=== PATIENT | female | born 1945 | race Caucasian/White ===

== ENCOUNTER 2016-05-26 15:00 | Inpatient (IN) | payer MEDICARE, MEDICAID ==
[~2016-05-26] VITALS: Ht 165.1 cm; Wt 54.4 kg
[2016-05-26] MEDS ORDERED: DIVA500T7 PO (15:39)
[2016-05-26] MEDS ORDERED: CHOL10005 PO (15:39)
[2016-05-26] MEDS ORDERED: PANT40TA4 PO (15:39)
[2016-05-26] MEDS ORDERED: DONE5TAB34 PO (15:39)
[2016-05-26] MEDS ORDERED: DIVA125T2 PO (15:39)
--- NOTE | 2016-05-26 15:57 | NUR ---
PT IS IN ROOM #1A. DR PEACE EVALUATED THE PT. CODE SEPSIS WAS CALLED BY DR PEACE.
[2016-05-26 16:00] LABS: CALCIUM 8.6 mg/dL (8.5-10.1); CREATININE 1.2 mg/dL (0.6-1.3); POTASSIUM 4.4 mmol/L (3.5-5.1)
[2016-05-26 16:01] LABS: BASOPHILS % (AUTO) 0.2 % (0.0-2.0); EOSINOPHILS # (AUTO) 0.1 K/uL (0.0-0.7); EOSINOPHILS % (AUTO) 0.5 % (0.0-7.0); HEMATOCRIT 33.4 % (37.0-47.0); HEMOGLOBIN 11.1 g/dL (12.0-16.0); LYMPHOCYTES # (AUTO) 0.4 K/uL (0.8-4.8); LYMPHOCYTES % (AUTO) 3.1 % (20.5-51.5); MEAN CORPUSCULAR HEMOGLOBIN 27.9 uug (27.0-31.0); MEAN CORPUSCULAR HGB CONC 33 g/dL (32.0-37.0); MEAN CORPUSCULAR VOLUME 84.3 fL (81.0-99.0); MONOCYTES # (AUTO) 0.7 K/uL (0.1-1.30); MONOCYTES % (AUTO) 5.6 % (0.0-11.0); NEUTROPHILS # (AUTO) 10.9 K/uL (1.8-8.9); NEUTROPHILS % (AUTO) 90.6 % (38.5-71.5); PLATELET COUNT (AUTO) 241 K/uL (150-450); RED BLOOD CELL COUNT(AUTO) 3.96 MIL/uL (4.20-5.40); RED CELL DISTRIBUTION WIDTH 13.4 % (11.5-14.5); WHITE BLOOD COUNT (AUTO) 12.1 K/uL (4.0-11.2)
[2016-05-26 16:05] LABS: TROPONIN I < 0.017 ng/mL (0.00-0.056)
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
[2016-05-26 16:11] LABS: ALBUMIN 2.8 g/dL (3.4-5.0); BILIRUBIN,DIRECT 0.1 mg/dL (0.0-0.2); BILIRUBIN,TOTAL 0.2 mg/dL (0.2-1.0); TOTAL PROTEIN, SERUM 6.9 g/dL (6.4-8.2)
[2016-05-26 16:22] LABS: LACTIC ACID 4.1 mmol/L (0.4-2.0)
[2016-05-26 16:23] LABS: THYROID STIMULATING HORMONE 1.474 mIU/mL (0.358-3.740)
[2016-05-26] MEDS ORDERED: LEVOFLOXACIN 750 MG/D5W 150 ML PIGGYBACK IV ONE (16:30)
[2016-05-26] MEDS ORDERED: IV NORMAL SALINE 1000 ML BAG IV ONE (16:30)
[2016-05-26] MEDS ORDERED: PIPERACILLIN SODIUM/TAZOBACTAM 3.375 G in IV DEXTROSE 5% 50 ML IV ONE (16:30)
[2016-05-26] MEDS ORDERED: LEVOFLOXACIN 750MG/D5W 150 ML IV ONE (17:23)
[2016-05-26] MEDS ORDERED: PIPERACILLIN/TAZOBACTAM/D5W 50 ML IV ONE (17:23)
[2016-05-26 18:05] LABS: *BILIRUBIN,URIN NEGATIVE (NEGATIVE); *BLOOD, URINE 2+ (NEGATIVE); *CLARITY,URINE CLOUDY (CLEAR); *COLOR,URINE YELLOW (YELLOW); *KETONES,URINE NEGATIVE (NEGATIVE); *UROBILINOGEN,URINE 0.2 E.U./dl (NORMAL); LEUKOCYTE ESTERASE ,URINE 2+ (NEGATIVE); NITRITE, URINE NEGATIVE (NEGATIVE); PH,URINE 7.5 (5.0-8.0); UGLUCOSE NEGATIVE (NEGATIVE)
[2016-05-26 18:13] LABS: *PROTEIN,URINE 3+ (NEGATIVE)
[2016-05-26 18:21] LABS: BACTERIA,URINE FEW /HPF (NONE SEEN); SQUAMOUS EPITHELIAL CELL,UR FEW /HPF (NONE SEEN); WBC,URINE TNTC /HPF (0-3)
--- NOTE | 2016-05-26 18:29 | NUR ---
REPORT WAS GIVEN TO SILVER RECOVERY OPERATOR. PT WAS TRANSFERED TO TELEMETRY ROOM #219.
--- NOTE | 2016-05-26 18:40 | NUR ---
RECEIVED PATIENT FROM ED 70 YEARS OLD FEMALE BY BOONE TO ROOM 219 WITH DX OF SEPSIS.PLACED PATIENT INTO BED FIXED AND MADE COMFORTABLE.PATIENT IS UNCOOPERATIVE SCREAMING AND RESISTANT TO CARE.PATIENT IS CONFUSED AND DISORIENTED AND UNABLE TO VERBALLY RESPOND.ZOILA IN INCONTINENT OF URINE DIAPER CHANGED AND TELEMETRY APPLIED AND PATIENT IS SINUS TACHYCARDIA HIGH 115
--- NOTE | 2016-05-26 18:51 | NUR ---
AWAITING FOR PATIENT TO BE ROLLED OVER BY THE ED AND PAPER WORK TO BE BROUGHT FROM THE ED DEPT.
[2016-05-26 18:52] VITALS: BP 104/60
--- NOTE | 2016-05-26 18:53 | NUR ---
WILL ENDORSE ADMISSION OF THIS PATIENT TO THE NEXT SHIFT.
--- NOTE | 2016-05-26 19:30 | NUR ---
Received patient sleeping comfortably in bed, no s/s of distress. Call light within reach. Will continue to monitor.
[2016-05-26 20:00] VITALS: BP 104/62
[2016-05-26] MEDS ORDERED: ONDANSETRON 4 MG/2 ML VIAL IV PRN (20:15)
[2016-05-26] MEDS ORDERED: MAGNESIUM HYDROXIDE 30 ML LIQUID UDC PO PRN (20:15)
[2016-05-26] MEDS ORDERED: ACETAMINOPHEN 325 MG TABLET PO PRN (20:15)
[2016-05-26] MEDS ORDERED: DOCUSATE SODIUM 250 MG CAPSULE PO SCH (21:00)
[2016-05-26] MEDS: CEFTRIAXONE 1 G in IV DEXTROSE 5% 50 ML IV SCH (21:12)
[2016-05-26] MEDS: DOCUSATE SODIUM 100 MG CAPSULE PO SCH (21:12)
[2016-05-26] MEDS: IV NS 1000 ML 1,000 ML IV PRN ×2 (21:12→23:12)
[2016-05-26] MEDS: VALPROATE SODIUM IV 500 MG in IV DEXTROSE 5% 100 ML IV SCH (22:32)
[2016-05-27] VITALS: BP 126/77
[2016-05-27] MEDS ORDERED: Z GUARD REMEDY PASTE 57 GM TUBE TOP PRN ×2 (01:15→11:58)
[2016-05-27 04:00] VITALS: BP_SYST 114; BP_SYST 126; BP_DIAS 70; BP_DIAS 77
[2016-05-27] MEDS: PANTOPRAZOLE SODIUM 40 MG TABLET.DR PO SCH (06:10)
--- NOTE | 2016-05-27 06:49 | NUR ---
Patient sleeping in bed, with no s/s of distress. IVF infusing well. Admission procedure completed. Skin assessment photos taken and placed in chart. Due meds given. MRSA swab done and sent to lab. Kept clean and dry. Kept in a comfortable position. Frequent checks done to ensure safety. Will endorse accordingly.
[2016-05-27 08:19] LABS: BASOPHILS % (AUTO) 0.2 % (0.0-2.0); EOSINOPHILS # (AUTO) 0.2 K/uL (0.0-0.7); EOSINOPHILS % (AUTO) 3.3 % (0.0-7.0); MEAN CORPUSCULAR HEMOGLOBIN 27.4 uug (27.0-31.0); MEAN CORPUSCULAR HGB CONC 33 g/dL (32.0-37.0); MONOCYTES # (AUTO) 0.4 K/uL (0.1-1.30); MONOCYTES % (AUTO) 8.2 % (0.0-11.0); NEUTROPHILS # (AUTO) 3.8 K/uL (1.8-8.9); NEUTROPHILS % (AUTO) 70.3 % (38.5-71.5); PLATELET COUNT (AUTO) 189 K/uL (150-450); RED BLOOD CELL COUNT(AUTO) 3.28 MIL/uL (4.20-5.40); RED CELL DISTRIBUTION WIDTH 13.6 % (11.5-14.5)
[2016-05-27 08:22] LABS: WHITE BLOOD COUNT (AUTO) 5.4 K/uL (4.0-11.2)
[2016-05-27 08:23] LABS: HEMATOCRIT 27.5 % (37.0-47.0)
--- NOTE | 2016-05-27 08:30 | NUR ---
RECEIVED PATIENT ASLEEP EASILY AROUSABLE ON ROUNDS ASSISTED WITH BREAKFAST ALL NEEDS ANTICIPATED AND SATISFIED TOTALLY DEPENDENT ON NURSES FOR ALL ADL.REMAIN ON IVF ORDERED WITH NO S/S OF INFILTERATION NOT IN DISTRESS AT THIS TIME.
[2016-05-27 09:10] LABS: ALBUMIN 2.4 g/dL (3.4-5.0); BILIRUBIN,TOTAL 0.2 mg/dL (0.2-1.0); CREATININE 0.8 mg/dL (0.6-1.3); MAGNESIUM 2.1 mg/dL (1.8-2.4); PHOSPHOROUS 3.4 mg/dL (2.5-4.9); POTASSIUM 4.2 mmol/L (3.5-5.1)
[2016-05-27 09:12] LABS: THYROID STIMULATING HORMONE 1.203 mIU/mL (0.358-3.740)
--- NOTE | 2016-05-27 10:40 | NUR ---
CLINICAL PHARMACY NOTE: REVIEW OF [facility] [place] [facility] This is a 70 y/o female admitted yesterday evening due to altered mental status and weakness. Patient is currently confused, nonverbal, and was agitated yesterday evening, worked up for stroke in ED, as well as sepsis. Patient has history of dementia and is currently being worked up for possible urosepsis. High Risk Medications: Aricept: Potential for QTc prolongation, bradycardia, syncope. Despite risks, patient has no other QT prolonging agents on board at home or in house and HR is currently tachycardic. Valproic acid: although not high risk medication in itself, side effects are dose related and can include CONCRETE MIXER OPERATOR toxicity, contributing to cognitive impairment. Patient currently on 500mg qhs, about 9 mg/kg dosage for seizure, lower than usual 15mg/kg. Although the previously mentioned medications above could possibly affect patient status, patient is on lowest dose for Aricept and lower than usual dosage for valproic acid with indications for each. Patient's home med list is minimal and does not indicate any other significant DDI. Current in house medications also reviewed for potential high risk medications, and no further medication related concerns at this time.
[2016-05-27 11:49] VITALS: BP 100/62
[2016-05-27] MEDS: Z GUARD REMEDY PASTE 57 GM TUBE TOP SCH ×2 (12:05→21:28)
[2016-05-27] MEDS: IV NS 1000 ML 1,000 ML IV PRN (13:01)
--- NOTE | 2016-05-27 14:00 | NUR ---
PATIENT SEEN AND EXAMINED BY THE GRANITE CUTTER DR ESCALANTE WITH ORDER TO DISCONTINUE TELEMETRY AND NOTED.PATIENT AMBULATED IN THE HALLWAY WITH STAND BYE ASSIST AND SEATED BY THE ELEVATOR FOR ABOUT HALF AN HOUR AND TOLERATED WELL.ASSISTED BACK TO BED AND NO C/O NOTED. Addendum: 05/27/16 at 1446 by RAH AGUILAR RN ERROR IN CHARTING WRONG ENTRY WRONG PATIENT
--- NOTE | 2016-05-27 14:46 | NUR ---
RESTING IN BED PATIENT OFTEN TIMES TALKING INCOHERENT ALL NEEDS ANTICIPATED AND SATISFIED.SEEN BY THE LIFE CLAIMS EXAMINER DR SUNG WITH NEW ORDERS AND NOTED.
[2016-05-27 15:38] VITALS: BP 98/56
--- NOTE | 2016-05-27 17:40 | NUR ---
TURNED AND REPOSITIONED Q2H FOR COMFORT HEELS FLOATED TO PREVENT PRESSURE.MAX ASSIST FOR ALL ADL NOT IN DISTRESS AT THIS TIME.
--- NOTE | 2016-05-27 19:30 | NUR ---
Received patient asleep with no s/s of distress. IV line patent, fluids infusing well. Will continue to monitor.
[2016-05-27 20:00] VITALS: BP 137/89
[2016-05-27] MEDS: CEFTRIAXONE 1 G in IV DEXTROSE 5% 50 ML IV SCH (20:23)
[2016-05-27] MEDS: DOCUSATE SODIUM 100 MG CAPSULE PO SCH (21:01)
[2016-05-27] MEDS: VALPROATE SODIUM IV 500 MG in IV DEXTROSE 5% 100 ML IV SCH (21:01)
[2016-05-28] MEDS: IV NS 1000 ML 1,000 ML IV PRN ×2 (04:52→21:39)
[2016-05-28 05:00] VITALS: BP 135/78
[2016-05-28] MEDS: PANTOPRAZOLE SODIUM 40 MG TABLET.DR PO SCH (06:29)
--- NOTE | 2016-05-28 06:44 | NUR ---
Patient sleeping on bed with no s/s of distress. IV intact, fluids infusing well. Due meds given. Kept clean, dry and comfortable. Redness on groin area noted to have subsided. Call light within reach. Frequent checks done to ensure safety. Endorsed accordingly.
--- NOTE | 2016-05-28 08:00 | NUR ---
Received Sleeping in bed and arousable and non verbal at this time. Caregiver in room and states that she thinks pt is in pain but pt is very relaxed at this time.
[2016-05-28] MEDS: Z GUARD REMEDY PASTE 57 GM TUBE TOP SCH ×2 (09:58→21:41)
[2016-05-28 10:01] LABS: BASOPHILS % (AUTO) 0.7 % (0.0-2.0); EOSINOPHILS # (AUTO) 0.2 K/uL (0.0-0.7); EOSINOPHILS % (AUTO) 4.6 % (0.0-7.0); HEMATOCRIT 27.8 % (37.0-47.0); HEMOGLOBIN 8.9 g/dL (12.0-16.0); LYMPHOCYTES # (AUTO) 1.1 K/uL (0.8-4.8); LYMPHOCYTES % (AUTO) 24.2 % (20.5-51.5); MEAN CORPUSCULAR HEMOGLOBIN 27.4 uug (27.0-31.0); MEAN CORPUSCULAR HGB CONC 32 g/dL (32.0-37.0); MEAN CORPUSCULAR VOLUME 85.1 fL (81.0-99.0); MONOCYTES # (AUTO) 0.3 K/uL (0.1-1.30); MONOCYTES % (AUTO) 5.9 % (0.0-11.0); NEUTROPHILS # (AUTO) 3.1 K/uL (1.8-8.9); NEUTROPHILS % (AUTO) 64.6 % (38.5-71.5); PLATELET COUNT (AUTO) 173 K/uL (150-450); RED BLOOD CELL COUNT(AUTO) 3.26 MIL/uL (4.20-5.40); RED CELL DISTRIBUTION WIDTH 13.5 % (11.5-14.5); WHITE BLOOD COUNT (AUTO) 4.7 K/uL (4.0-11.2)
[2016-05-28 10:08] LABS: CALCIUM 8.2 mg/dL (8.5-10.1); CREATININE 0.8 mg/dL (0.6-1.3); POTASSIUM 3.9 mmol/L (3.5-5.1)
[2016-05-28 11:03] VITALS: BP 110/68
[2016-05-28 15:02] VITALS: BP 108/54
--- NOTE | 2016-05-28 18:26 | NUR ---
PT here and attempt to get pt up OOB with assist unable to do so as pt is very stiff and pushing back.
[2016-05-28 20:00] VITALS: BP 136/81
[2016-05-28] MEDS: CEFTRIAXONE 1 G in IV DEXTROSE 5% 50 ML IV SCH (21:40)
[2016-05-28] MEDS: VALPROATE SODIUM IV 500 MG in IV DEXTROSE 5% 100 ML IV SCH (21:40)
[2016-05-28] MEDS: DOCUSATE SODIUM 100 MG CAPSULE PO SCH (21:42)
[2016-05-29 04:00] VITALS: BP 128/65
--- NOTE | 2016-05-29 06:00 | NUR ---
PT GIVEN MEDS COLACE, PLACED IN APPLE SAUCE, NOTED PT COUGHING AND NOTED THAT PT KEEPS FOOD IN THE MOUTH. PT RESPONDS WHEN CALLED HER NAME AT TIMES BUT MOST OF THE TIME SHE DOESN'T COMMUNICATE. STARTED NEW IV, OLD IV SITE SWOLLEN AND RED AND PUMP KEEP ALARMING.CONTINUE WITH IV FLUIDS, VSS,AFEBRILE.
[2016-05-29 06:20] LABS: CALCIUM 8.3 mg/dL (8.5-10.1); CREATININE 0.7 mg/dL (0.6-1.3); MAGNESIUM 1.8 mg/dL (1.8-2.4); PHOSPHOROUS 3.7 mg/dL (2.5-4.9); POTASSIUM 3.6 mmol/L (3.5-5.1)
[2016-05-29 06:21] LABS: BASOPHILS # (AUTO) 0.2 K/uL (0.0-0.2); EOSINOPHILS # (AUTO) 0.4 K/uL (0.0-0.7); EOSINOPHILS % (AUTO) 6.4 % (0.0-7.0); HEMATOCRIT 28.7 % (37.0-47.0); HEMOGLOBIN 9.4 g/dL (12.0-16.0); LYMPHOCYTES # (AUTO) 1.6 K/uL (0.8-4.8); LYMPHOCYTES % (AUTO) 24.7 % (20.5-51.5); MEAN CORPUSCULAR HEMOGLOBIN 27.9 uug (27.0-31.0); MEAN CORPUSCULAR HGB CONC 33 g/dL (32.0-37.0); MEAN CORPUSCULAR VOLUME 84.8 fL (81.0-99.0); MONOCYTES # (AUTO) 0.4 K/uL (0.1-1.30); MONOCYTES % (AUTO) 5.3 % (0.0-11.0); NEUTROPHILS % (AUTO) 60.6 % (38.5-71.5); PLATELET COUNT (AUTO) 115 K/uL (150-450); RED BLOOD CELL COUNT(AUTO) 3.38 MIL/uL (4.20-5.40); RED CELL DISTRIBUTION WIDTH 12.9 % (11.5-14.5); WHITE BLOOD COUNT (AUTO) 6.6 K/uL (4.0-11.2)
[2016-05-29] MEDS: PANTOPRAZOLE SODIUM 40 MG TABLET.DR PO SCH (07:41)
[2016-05-29] MEDS: Z GUARD REMEDY PASTE 57 GM TUBE TOP SCH ×2 (08:03→20:33)
[2016-05-29 11:23] VITALS: BP 129/55
[2016-05-29] MEDS ORDERED: FUROSEMIDE 20 MG/2 ML VIAL IV ONE (12:30)
[2016-05-29] MEDS ORDERED: SOD FERRIC GLUC COMPLX/SUCROSE 125 MG in IV NORMAL SALINE 100 ML IV SCH (14:00)
[2016-05-29 16:02] VITALS: BP 127/72
[2016-05-29 20:00] VITALS: BP 121/81
[2016-05-29] MEDS: DOCUSATE SODIUM 100 MG CAPSULE PO SCH (20:32)
[2016-05-29] MEDS: CEFTRIAXONE 1 G in IV DEXTROSE 5% 50 ML IV SCH (20:33)
--- NOTE | 2016-05-29 21:30 | NUR ---
Pt's IV pump keeps alarming, IV site on left thumb discontinued, started IV HL to right forearm using gauge 22 needle x 1 attempt with good blood return.
[2016-05-29] MEDS: VALPROATE SODIUM IV 500 MG in IV DEXTROSE 5% 100 ML IV SCH (21:33)
[2016-05-30 04:00] VITALS: BP 116/66
[2016-05-30] MEDS: PANTOPRAZOLE SODIUM 40 MG TABLET.DR PO SCH (06:15)
[2016-05-30] MEDS: Z GUARD REMEDY PASTE 57 GM TUBE TOP SCH ×2 (08:03→20:36)
[2016-05-30 12:00] VITALS: BP 123/77
[2016-05-30 15:39] VITALS: BP 103/72
--- NOTE | 2016-05-30 17:17 | NUR ---
Spoke to the patient's DPOAHC, Radha Michel [ ], about discharge planning and she became very agitated and nervous because she felt that planning for her discharge is too premature. Explained to her that the patient is not being discharged today but we need to plan for it, the sooner the better. Asked which SNF she came from and she declined to give the facility in fear that the patient will be discharged back there without he knowledge. Reassured her that she will be contacted for any discharge before but she would like to speak to the MD first. Updated the chargemaster analyst, Brittany, and requested for Dr. Rojas to call her.
[2016-05-30 20:00] VITALS: BP 127/85
--- NOTE | 2016-05-30 20:00 | NUR ---
RECEIVED PATIENT ASLEEP IN BED. AROUSABLE BUT FALLS BACK ASLEEP QUICKLY. NO S/S OF ANY PAIN OR DISCOMFORT. NO FACIAL GRIMACE NOTED. NO RESP. DISTRESS NOTED. VSS. HOB ELEVATED FOR ASPIRATION PRECAUTIONS. HEPLOCK INTACT AND PATENT NOTED TO RIGHT FA #[address]GE[address]. BED ALARM ON. CALL LIGHT IN REACH. ALL NEEDS ATTENDED. WILL CONTINUE TO MONITOR.
[2016-05-30] MEDS: CEFTRIAXONE 1 G in IV DEXTROSE 5% 50 ML IV SCH (20:05)
--- NOTE | 2016-05-30 20:35 | NUR ---
PATIENT UNABLE TO TAKE HS COLACE AT THIS TIME. MOUTH CARE PROVIDED AND PATIENT REPOSITIONED TO COMFORT. BED ALARM ON. WILL CONTINUE TO MONITOR.
[2016-05-30] MEDS: DOCUSATE SODIUM 100 MG CAPSULE PO SCH (20:36)
[2016-05-30] MEDS: VALPROATE SODIUM IV 500 MG in IV DEXTROSE 5% 100 ML IV SCH (21:00)
[2016-05-31 04:00] VITALS: BP 130/80
[2016-05-31] MEDS: PANTOPRAZOLE SODIUM 40 MG TABLET.DR PO SCH (06:09)
--- NOTE | 2016-05-31 06:20 | NUR ---
PATIENT AWAKE IN BED. REPOSITIONED TO SIDE. VSS. SLEPT WELL THROUGHOUT THE NIGHT. BED ALARM ON. CALL LIGHT IN REACH. ALL NEEDS ATTENDED. WILL CONTINUE TO MONITOR.
[2016-05-31 06:57] LABS: HEMATOCRIT 31.9 % (37.0-47.0); HEMOGLOBIN 10.3 g/dL (12.0-16.0); MEAN CORPUSCULAR HEMOGLOBIN 27.1 uug (27.0-31.0); MEAN CORPUSCULAR HGB CONC 32 g/dL (32.0-37.0); MEAN CORPUSCULAR VOLUME 84.4 fL (81.0-99.0); PLATELET COUNT (AUTO) 120 K/uL (150-450); RED BLOOD CELL COUNT(AUTO) 3.78 MIL/uL (4.20-5.40); RED CELL DISTRIBUTION WIDTH 13.5 % (11.5-14.5); WHITE BLOOD COUNT (AUTO) 3.6 K/uL (4.0-11.2)
[2016-05-31 07:27] LABS: ALBUMIN 2.7 g/dL (3.4-5.0); BILIRUBIN,TOTAL 0.2 mg/dL (0.2-1.0); CALCIUM 8.6 mg/dL (8.5-10.1); CREATININE 0.8 mg/dL (0.6-1.3); PHOSPHOROUS 3.6 mg/dL (2.5-4.9); POTASSIUM 3.7 mmol/L (3.5-5.1); TOTAL PROTEIN, SERUM 6.7 g/dL (6.4-8.2)
--- NOTE | 2016-05-31 07:30 | NUR ---
pt received in bed sleeping.no s/s of distress noted.v/s are stable.
[2016-05-31] MEDS: Z GUARD REMEDY PASTE 57 GM TUBE TOP SCH ×2 (09:21→20:34)
[2016-05-31] MEDS: MORPHINE SULFATE 2 MG/1 ML DISP.SYRIN IV PRN (09:36)
[2016-05-31 11:04] VITALS: BP 103/69
[2016-05-31 11:29] LABS: NEUTROPHILS % (AUTO) 59.6 % (38.5-71.5)
[2016-05-31 11:30] LABS: BASOPHILS % (AUTO) 0.6 % (0.0-2.0); EOSINOPHILS % (AUTO) 2.7 % (0.0-7.0); LYMPHOCYTES % (AUTO) 22.7 % (20.5-51.5); MONOCYTES % (AUTO) 14.4 % (0.0-11.0)
[2016-05-31 19:00] VITALS: BP 94/69
--- NOTE | 2016-05-31 19:45 | NUR ---
RECEIVED PATIENT ASLEEP IN BED. AROUSABLE TO NAME AND TOUCH BUT IS APHASIC. NO S/S OF ANY PAIN OR DISCOMFORT. ATTEMPTED TO GIVE PATIENT SIPS OF WATER BUT PATIENT WAS PASSIVE. WILL CONTINUE TO MONITOR.
[2016-05-31] MEDS: CEFTRIAXONE 1 G in IV DEXTROSE 5% 50 ML IV SCH (20:14)
[2016-05-31] MEDS: DOCUSATE SODIUM 100 MG CAPSULE PO SCH (20:35)
--- NOTE | 2016-05-31 20:35 | NUR ---
UNABLE TO GIVE PATIENT PO MED FOR BEDTIME PATIENT IS NOT ABLE TO SWALLOW. REPORTED THAT PATIENT POCKETS FOOD. ATTEMPTED TO GIVE FLUIDS BUT PATIENT REFUSED.
[2016-05-31] MEDS: VALPROATE SODIUM IV 500 MG in IV DEXTROSE 5% 100 ML IV SCH (21:11)
--- NOTE | 2016-05-31 22:00 | NUR ---
NOTIFIED DR. ARCOS REGARDING PATIENTS POOR APPETITE AND REFUSING FLUIDS. RECEIVED ORDER FOR CONTINUOUS IVF AND ORDER FOR SWALLOW EVAL. ALL NEEDS ATTENDED. WILL CONTINUE TO MONITOR.
[2016-05-31] MEDS: POTASSIUM CHLORIDE 20 MEQ in IV D5/ 0.9% NACL 1,000 ML IV PRN (22:54)
[2016-06-01 04:00] VITALS: BP 110/60
--- NOTE | 2016-06-01 06:05 | NUR ---
PATIENT ASLEEP IN BED. REPOSITIONED. SLEPT WELL THROUGHOUT THE NIGHT. NO S/S OF PAIN OR DISCOMFORT. NO FACIAL GRIMACE NOTED. NO RESP. DISTRESS NOTED. IVF INFUSING WELL ORDERED. BED ALARM ON. CALL LIGHT IN REACH. ALL NEEDS ATTENDED. WILL CONTINUE TO MONITOR.
[2016-06-01] MEDS: PANTOPRAZOLE SODIUM 40 MG TABLET.DR PO SCH (06:26)
--- NOTE | 2016-06-01 07:30 | NUR ---
pt is sleeping in bed comfortably. no s/s of respiratory distress noted. no pain noted. all safety needs are met. will continue to monitor.
[2016-06-01 07:36] LABS: HEMATOCRIT 30.5 % (37.0-47.0); HEMOGLOBIN 9.6 g/dL (12.0-16.0); MEAN CORPUSCULAR HEMOGLOBIN 26.9 uug (27.0-31.0); MEAN CORPUSCULAR HGB CONC 31 g/dL (32.0-37.0); PLATELET COUNT (AUTO) 171 K/uL (150-450); RED BLOOD CELL COUNT(AUTO) 3.55 MIL/uL (4.20-5.40); RED CELL DISTRIBUTION WIDTH 13.6 % (11.5-14.5); WHITE BLOOD COUNT (AUTO) 3.8 K/uL (4.0-11.2)
[2016-06-01 08:10] LABS: CALCIUM 8.1 mg/dL (8.5-10.1); CREATININE 0.8 mg/dL (0.6-1.3); MAGNESIUM 2.1 mg/dL (1.8-2.4); POTASSIUM 3.9 mmol/L (3.5-5.1)
[2016-06-01] MEDS: Z GUARD REMEDY PASTE 57 GM TUBE TOP SCH ×2 (08:12→20:19)
[2016-06-01] MEDS: MORPHINE SULFATE 2 MG/1 ML DISP.SYRIN IV PRN (09:57)
[2016-06-01 11:20] VITALS: BP 112/70
[2016-06-01 12:20] LABS: BASOPHILS % (AUTO) 0.2 % (0.0-2.0); LYMPHOCYTES % (AUTO) 15.9 % (20.5-51.5); MONOCYTES % (AUTO) 9.5 % (0.0-11.0); NEUTROPHILS % (AUTO) 73.4 % (38.5-71.5)
[2016-06-01] MEDS: POTASSIUM CHLORIDE 20 MEQ in IV D5/ 0.9% NACL 1,000 ML IV PRN (13:47)
[2016-06-01 15:10] VITALS: BP 108/64
--- NOTE | 2016-06-01 19:45 | NUR ---
RECEIVED PATIENT IN BED RESTING WITH EYES CLOSED, AROUSABLE TO NAME AND TOUCH, APHASIC, IN NO ACUTE DISTRESS. NO S/S OF PAIN OR UNEASINESS OBSERVED AT THIS TIME. EVEN AND NONLABORED BREATHING NOTED. SAFETY AND ASPIRATION PRECAUTIONS MAINTAINED. WILL CONTINUE TO MONITOR
--- NOTE | 2016-06-01 19:45 | NUR ---
PT IS LAYING COMFORTABLY IN BED. NO S/S OF RESPIRATORY DISTRESS NOTED. NO PAIN NOTED. ALL SAFETY NEEDS ARE MET.
[2016-06-01 20:05] VITALS: BP 126/76
[2016-06-01] MEDS: DOCUSATE SODIUM 100 MG CAPSULE PO SCH (20:06)
--- NOTE | 2016-06-01 20:30 | NUR ---
PROVIDED SIP OF WATER, PT ABLE TO SWALLOW SMALL SIP WITH ENCOURAGEMENT. COLACE MIXED WITH SMALL SPOON OF APPLE SAUCE GIVEN, ABLE TO SWALLOW AFTER FREQUENT PROMPTING AND ENCOURAGEMENT PROVIDED. NO COUGHING NOTED AT THIS TIME, TOLERATED WELL. KEPT UPRIGHT, HOB ELEVATED, ASPIRATION PRECAUTIONS MAINTAINED. ALL NEEDS ATTENDED AT THIS TIME. WILL CONTINUE MONITORING.
[2016-06-01] MEDS: VALPROATE SODIUM IV 500 MG in IV DEXTROSE 5% 100 ML IV SCH (21:26)
[2016-06-02 06:07] VITALS: BP 136/96
--- NOTE | 2016-06-02 06:30 | NUR ---
PATIENT IN BED RESTING, SLEPT WELL. NO ACUTE DISTRESS THROUGHOUT SHIFT. NO RESPIRATORY DISTRESS. OCCASIONAL NONPRODUCTIVE COUGH OBSERVED THIS AM, REPOSITIONED FOR COMFORT, ASPIRATION PRECAUTIONS MAINTAINED. PATIENT WITH X1 LOOSE BROWN BM THIS AM. NEW IV REINSERTED TO R HAND #20 INTACT, IVF INFUSING TOLERATING WELL. MED PROTONIX NOT GIVEN, PT DUE TO PT NOT FULLY AWOKEN AT THIS TIME AND AWAITING FOR SWALLOW EVAL. WILL ENDORSE PERTINENT INFO AND PLAN OF CARE TO DAY SHIFT NURSE. KEPT CLEAN AND DRY. TURNED/REPOSITIONED. SAFETY AND COMFORT MAINTAINED.
[2016-06-02] MEDS: POTASSIUM CHLORIDE 20 MEQ in IV D5/ 0.9% NACL 1,000 ML IV PRN (06:32)
[2016-06-02] MEDS: PANTOPRAZOLE SODIUM 40 MG TABLET.DR PO SCH (06:34)
[2016-06-02 07:10] LABS: ALBUMIN 2.4 g/dL (3.4-5.0); BILIRUBIN,TOTAL 0.2 mg/dL (0.2-1.0); CALCIUM 8.3 mg/dL (8.5-10.1); CREATININE 0.7 mg/dL (0.6-1.3); MAGNESIUM 1.9 mg/dL (1.8-2.4); PHOSPHOROUS 2.5 mg/dL (2.5-4.9); POTASSIUM 3.9 mmol/L (3.5-5.1); TOTAL PROTEIN, SERUM 5.9 g/dL (6.4-8.2)
--- NOTE | 2016-06-02 08:30 | NUR ---
RECEIVED PATIENT IN BED AWAKE UNABLE TO VERBALISE NEEDS TOTALLY DEPENDENT ON NURSES FOR ALL ADL.PATIENT TOLERATED HER BOOST THIS AM WITH NO COUGHING AWAITING FOR THE SPEECH AND LANGUAGE THERAPIST TO SEE PATIENT.
[2016-06-02] MEDS: Z GUARD REMEDY PASTE 57 GM TUBE TOP SCH (08:42)
[2016-06-02 09:15] LABS: RED CELL DISTRIBUTION WIDTH 13.6 % (11.5-14.5)
[2016-06-02 09:23] LABS: HEMATOCRIT 29.5 % (37.0-47.0); HEMOGLOBIN 9.6 g/dL (12.0-16.0); MEAN CORPUSCULAR HEMOGLOBIN 27.5 uug (27.0-31.0); MEAN CORPUSCULAR HGB CONC 33 g/dL (32.0-37.0); MEAN CORPUSCULAR VOLUME 84.7 fL (81.0-99.0); PLATELET COUNT (AUTO) 166 K/uL (150-450); RED BLOOD CELL COUNT(AUTO) 3.48 MIL/uL (4.20-5.40)
[2016-06-02 09:26] LABS: WHITE BLOOD COUNT (AUTO) 2.8 K/uL (4.0-11.2)
[2016-06-02 11:25] LABS: BAND % (MANUAL) 3 % (0-10); LYMPHOCYTES % (MANUAL) 18 % (20-40); MONOCYTES % (MANUAL) 8 % (2-10); NEUTROPHILS % (MANUAL) 71 % (42-75)
[2016-06-02 11:27] LABS: PLATELET ESTIMATE ADEQUATE
[2016-06-02 11:58] VITALS: BP 100/64
--- NOTE | 2016-06-02 13:00 | NUR ---
SPEECH AND LANGUAGE THERAPIST HERE TO SEE PATIENT AND STATED THAT SHE WILL RECOMMEND FULL LIQUIDS DIET SINCE PATIENT IS TOLERATING FLUIDS WITH NO PROBLEMS AND POCKETING OTHER FORMS OF FOOD DR FERNANDO AWARE WITH NO NEW ORDERS AT THIS TIME.DISCHARGE PLANNING TO [facility] AND HER MARIAN WAS HERE AND AWARE OF THE DISCHARGE/TRANSFER.
[2016-06-02 14:33] VITALS: BP 136/68
[2016-06-02] MEDS ORDERED: PIPE3.379 IV (14:44)
[2016-06-02] MEDS ORDERED: Docusate Sodium PO (14:44)
[2016-06-02] MEDS ORDERED: Acetaminophen PO (14:44)
--- NOTE | 2016-06-02 16:05 | NUR ---
CALLED [facility] AND SPOKE WITH VIRAJ AND GAVE HER REPORT FOR CONTINUING CARE.A NEW HEPLOCK INERTED TO HER LEFT FORARM WITH GAUGE NUMBER 22 PATIENT WILL CONTINUE ON THE ZOSYN ORDERED.
--- NOTE | 2016-06-02 17:03 | NUR ---
IV SITE CHANGED TO HER LEFT FOREARM BECAUSE PATIENT WILL CONTINUE ON IV ANTIBIOTICS WHEN SHE GETS TO THE [facility].
--- NOTE | 2016-06-02 18:00 | NUR ---
PATIENT DISCHARGED TO [facility] PICKED UP BY MED RESPONSE IN SATISFACTORY CONDITION WITH DISCHARGE INSTRUCTIONS.PATIENT HAS NO PERSONAL BELONGINGS AT THIS TIME.THE SNF WAS INSTRUCTED TO START THE PATIENT ON ZOSYN FOR 4 DAYS AND SHE EXPRESSED UNDERSTANDING.
== END 2016-06-02 18:00 | DRG 871 ==
LOC: ER 15:05 → TELE 18:47 → MED 05-27 13:46
PROVIDERS: ADMIT Internal Medicine; ATTEND Internal Medicine
DX: A41.9 Sepsis, unspecified organism (principal); G93.40 Encephalopathy, unspecified; J69.0 Pneumonitis due to inhalation of food and vomit; E43 Unspecified severe protein-calorie malnutrition; I50.33 Acute on chronic diastolic (congestive) heart failure; N39.0 Urinary tract infection, site not specified; D68.59 Other primary thrombophilia; D32.9 Benign neoplasm of meninges, unspecified; D50.9 Iron deficiency anemia, unspecified; F32.9 Major depressive disorder, single episode, unspecified; K21.9 Gastro-esophageal reflux disease without esophagitis; R32 Unspecified urinary incontinence; Z87.440 Personal history of urinary (tract) infections; M62.84 Sarcopenia; G30.0 Alzheimer's disease with early onset; F02.80 Dementia in other diseases classified elsewhere, unspecified severity, without behavioral disturbance, psychotic disturbance, mood disturbance, and anxiety; J20.9 Acute bronchitis, unspecified; K44.9 Diaphragmatic hernia without obstruction or gangrene; R19.5 Other fecal abnormalities; Z88.2 Allergy status to sulfonamides; R65.20 Severe sepsis without septic shock; I11.0 Hypertensive heart disease with heart failure; D46.9 Myelodysplastic syndrome, unspecified
CPT/HCPCS: 36415; 70030-TC; 70450; 71010; 82306; 82378; 83550; 83605; 83735; 84100; 84443; 85025; 85730; 87040; 87086; 92506; 92610; 93005; 93307; 97001; 97003; 97110; 97116; 97530; A4663; C1758; J0696; J1940; J1956; J2270; J2543; J2916; J3480; J3490; J7030; J7042; J7050; J7060